=== PATIENT | male | born 1985 | race Two or more races ===

== ENCOUNTER 2024-04-17 02:44 | Emergency (ER) | payer BC ==
[~2024-04-17] VITALS: Ht 182.9 cm; Wt 113.4 kg
[2024-04-17] MEDS ORDERED: ZYRTEC10 M3 PO (02:47)
[2024-04-17] MEDS ORDERED: COZAAR50 MG PO (02:48)
[2024-04-17] MEDS ORDERED: ACID REDUCER20 M1 PO (02:48)
[2024-04-17] MEDS ORDERED: CLINDAMYCIN PHOSPHATE 150 MG/ML (600mg) IM STA (05:32)
[2024-04-17] MEDS ORDERED: TETANUS & DIPHTHERIA TOX,ADULT 0.5 ML VIAL IM STA (05:32)
== END 2024-04-17 05:46 | disposition home or self-care (01) ==
LOC: ER 02:46
DX: S80.872A Other superficial bite, left lower leg, initial encounter (principal); W54.0XXA Bitten by dog, initial encounter; Y93.89 Activity, other specified; Y92.89 Other specified places as the place of occurrence of the external cause